=== PATIENT | female | born 1960 | race Caucasian/White ===

== ENCOUNTER 2018-06-14 08:23 | Outpatient (CLI) | payer OTHER | END 2018-06-14 08:24 | disposition home or self-care (01) | LOC: BICMAMMO 08:23 | PROVIDERS: ATTEND Family Medicine | DX: Z12.31 Encounter for screening mammogram for malignant neoplasm of breast (principal); R92.1 Mammographic calcification found on diagnostic imaging of breast | CPT/HCPCS: 77063; 77067 ==

== ENCOUNTER 2020-07-09 08:13 | Outpatient (CLI) | payer OTHER ==
--- NOTE | 2020-07-09 09:04 | CT ---
CT OF THE ABDOMEN AND PELVIS WITH IV CONTRAST INDICATION: Abdominal pain, cramping and diarrhea COMPARISON: None FINDINGS: ABDOMEN: Lung bases: Clear Liver: Mild fatty liver Gallbladder: Surgically absent Pancreas: Normal. Adrenal glands: Normal. Spleen: Calcified granuloma Kidneys and ureters: Normal. No hydronephrosis. Vasculature: There are mild vascular calcifications seen involving the visualized vasculature. Lymph nodes:No lymphadenopathy. Free fluid in abdomen:No free fluid is evident. PELVIS: Small and large bowel: Normal Appendix:Normal Bladder: Normal. Rectal and perirectal soft tissues:Normal. Reproductive structures: Fibroid uterus. 1.7 cm nabothian cyst Free fluid in pelvis: No free fluid is evident. Lymphadenopathy pelvis: No lymphadenopathy is evident. Osseous structures: No acute osseous abnormality. No destructive osteolytic or osteoblastic lesion i s identified. There is scattered degenerative and osteoarthritic changes. Soft tissues:Normal. IMPRESSION: 1. No acute abnormality.
== END 2020-07-09 08:14 | disposition home or self-care (01) ==
LOC: SCSCT 08:13
PROVIDERS: ATTEND Physician Assistant Medical
DX: R10.33 Periumbilical pain (principal); R11.0 Nausea; R19.7 Diarrhea, unspecified
CPT/HCPCS: 74177; 82565

== ENCOUNTER 2021-07-15 17:30 | Outpatient (CLI) | payer BC | END 2021-07-15 17:31 | disposition home or self-care (01) | LOC: SLEEPLAB 17:30 | PROVIDERS: ATTEND Family Medicine | DX: G47.33 Obstructive sleep apnea (adult) (pediatric) (principal); R53.83 Other fatigue; K21.9 Gastro-esophageal reflux disease without esophagitis; G47.00 Insomnia, unspecified; F41.9 Anxiety disorder, unspecified; I10 Essential (primary) hypertension; E66.9 Obesity, unspecified; Z68.32 Body mass index [BMI] 32.0-32.9, adult | CPT/HCPCS: 95806 ==

== ENCOUNTER 2021-08-08 13:40 | Outpatient (CLI) | payer BC | END 2021-08-08 13:41 | disposition home or self-care (01) | LOC: ULT 13:40 | PROVIDERS: ATTEND Family Medicine | DX: U09.9 Post COVID-19 condition, unspecified (principal); R07.9 Chest pain, unspecified; R06.02 Shortness of breath; I08.8 Other rheumatic multiple valve diseases | CPT/HCPCS: 93306 ==

== ENCOUNTER 2021-08-26 19:30 | Outpatient (CLI) | payer BC | END 2021-08-26 19:31 | disposition home or self-care (01) | LOC: SLEEPLAB 19:30 | PROVIDERS: ATTEND Family Medicine | DX: G47.33 Obstructive sleep apnea (adult) (pediatric) (principal); R53.83 Other fatigue; K21.9 Gastro-esophageal reflux disease without esophagitis; F41.9 Anxiety disorder, unspecified; G47.00 Insomnia, unspecified; R06.83 Snoring; I10 Essential (primary) hypertension; G47.10 Hypersomnia, unspecified; E66.9 Obesity, unspecified; Z68.32 Body mass index [BMI] 32.0-32.9, adult | CPT/HCPCS: 95811 ==